=== PATIENT | male | born 1980 | race Caucasian/White ===

== ENCOUNTER 2020-12-10 17:45 | Emergency (ER) | payer MEDICAID ==
[~2020-12-10] VITALS: Ht 175.3 cm; Wt 77.1 kg
[2020-12-10] MEDS ORDERED: OXYCODONE/APAP 5-325 MG TABLET PO ONE (19:00)
[2020-12-10] MEDS ORDERED: OXYCODONE/APAP 5-325 MG TABLET ONE (19:05)
--- NOTE | 2020-12-10 19:17 | NUR ---
Xray at bedside
--- NOTE | 2020-12-10 19:43 | NUR ---
Pt. returned from xray.
[2020-12-10] MEDS ORDERED: NAPR-1164 PO (20:12)
[2020-12-10] MEDS ORDERED: OXYC-128 PO (20:12)
[2020-12-10 20:48] VITALS: BP 124/77
== END 2020-12-10 20:27 | disposition home or self-care (01) ==
LOC: ER 17:46
DX: S39.012A Strain of muscle, fascia and tendon of lower back, initial encounter (principal); S29.012A Strain of muscle and tendon of back wall of thorax, initial encounter; V43.52XA Car driver injured in collision with other type car in traffic accident, initial encounter; Y93.9 Activity, unspecified; Y92.414 Local residential or business street as the place of occurrence of the external cause
CPT/HCPCS: 72072; 72100; A4663